=== PATIENT | male | born 1945 | race Caucasian/White ===

== ENCOUNTER → 2018-12-30 10:19 | Outpatient (POV) | payer MEDICARE, OTHER, SELFPAY ==
[2018-12-30 11:15] LABS: Adenovirus F 40/41, stool Not Detected (NotDetected); Astrovirus Not Detected (NotDetected); Campylobacter Not Detected (NotDetected); Clostridium Difficile A/B, PCR Not Detected (NotDetected); Cryptosporidium Not Detected (NotDetected); Cyclospora Cayetanesis Not Detected (NotDetected); Entamoeba histolytica Not Detected (NotDetected); Enteroaggregative E coli Not Detected (NotDetected); Enterotoxigenic E coli Not Detected (NotDetected); Giardia lamblia Not Detected (NotDetected); Norovirus Not Detected (NotDetected); Plesimonas Shigalloides, PCR Not Detected (NotDetected); Rotavirus A Not Detected (NotDetected); Salmonella, PCR Not Detected (NotDetected); Sapovirus Not Detected (NotDetected); Shiga-like toxin E coli Not Detected (NotDetected); Shigella Enterovasive E coli Not Detected (NotDetected); Vibrio Cholerae Not Detected (NotDetected); Vibrio, PCR Not Detected (NotDetected); Yersinia Entercolitica, PCR Not Detected (NotDetected)
[2018-12-30 13:33] LABS: Enteropathogenic E coli Detected (NotDetected)
== END ==
PROVIDERS: PCP Family Medicine; Visit Provider Nurse Practitioner Family
DX: Y99.9 Unspecified external cause status (principal)
CPT/HCPCS: 87506

== ENCOUNTER → 2019-01-06 10:05 | Outpatient (POV) | payer MEDICARE, OTHER, SELFPAY | PROVIDERS: PCP Family Medicine; Visit Provider Nurse Practitioner Family | DX: Z00.00 Encounter for general adult medical examination without abnormal findings (principal) ==

== ENCOUNTER → 2019-04-02 11:00 | Outpatient (CLI) | payer MEDICARE, OTHER, SELFPAY ==
[2019-04-02 12:09] LABS: Basophils # 0.1 K/mm3 (0-0.2); Eosinophils # 0.2 K/mm3 (0.0-0.4); Eosinophils % 3.1 % (0.1-12.0); Hematocrit 47.2 % (42.0-52.0); Hemoglobin 15.2 g/dL (14.1-18.0); Lymphocytes # 2.6 K/mm3 (0.7-4.5); Lymphocytes % 43.8 % (10-50); Mean Corpuscular HGB Conc 32.1 g/dL (31.8-35.4); Mean Corpuscular Hemoglobin 29.8 pg (27.0-31.2); Mean Corpuscular Volume 92.7 fl (80-94); Mean Platelet Volume 10.7 fl (7.4-10.4); Monocytes # 0.2 K/mm3 (0.1-1.0); Monocytes % 3.6 % (1.7-9.3); Neutrophils # 2.9 K/mm3 (1.8-7.8); Neutrophils % 48.5 % (37.0-80.0); Platelet Count 167 K/mm3 (142-424); Red Blood Count 5.09 M/mm3 (4.60-6.20); Red Cell Distribution Width 13.4 % (11.5-17.5)
[2019-04-02 12:22] LABS: INR 1.01 (0.9-1.1); Prothrombin Time 10.5 seconds (9.4-11.8)
[2019-04-02 14:16] LABS: Alanine Aminotransferase 54 U/L (12-78); Albumin Level 3.9 gm/dL (3.4-5.0); Albumin/Globulin Ratio 1.2 (1.1-1.8); Alkaline Phosphatase 53 U/L (46-116); Anion Gap 12.5 mEq/L (5-15); Aspartate Amino Transferase 36 U/L (15-37); Bilirubin,Total 0.5 mg/dL (0.2-1.0); Blood Urea Nitrogen 14 mg/dL (7-18); Calcium 9.4 mg/dL (8.5-10.1); Carbon Dioxide 30 mmol/L (21.0-32.0); Chloride 102 mmol/L (98-107); Creatinine,Serum 1.19 mg/dL (0.70-1.30); Estimated Glomerular Filt Rate 60 ml/min (>60); Ferritin 208 ng/mL (8-388); GFR (African American) 73 ML/MIN (>60); Globulin 3.2 gm/dl (1.3-3.2); Glucose 182 mg/dL (74-106); Potassium 4.5 mmoL/L (3.5-5.1); Sodium 140 mmol/L (136-145); Total Protein,Serum 7.1 gm/dL (6.4-8.2)
[2019-04-03 08:14] LABS: Hep A Ab, IgM Negative (Negative); Hepatitis B Core Antibody IgM Negative (Negative); Hepatitis B Surface Antigen Negative (Negative); Immunoglobulin A, Qn 97 mg/dL (61-437); Immunoglobulin G, Qn 1024 mg/dL (700-1600); Iron 82 ug/dL (38-169); Iron Saturation 26 % (15-55); UIBC 228 ug/dL (111-343)
[2019-04-03 12:04] LABS: Hepatitis C Antibody <0.1 s/co ratio (0.0-0.9); Immunoglobulin M, Qn 59 mg/dL (15-143)
[2019-04-03 13:25] LABS: Angiotensin Converting Enzyme <15 U/L (14-82)
[2019-04-04 08:27] LABS: Actin (Smooth Muscle) Antibody 7 Units (0-19)
[2019-04-08 19:10] LABS: Alpha-1-Antitrypsin 88 mg/dL (101-187); Phenotype (PI) MZ (.)
== END ==
PROVIDERS: Visit Provider Family Medicine
DX: K76.0 Fatty (change of) liver, not elsewhere classified (principal); R11.0 Nausea
CPT/HCPCS: 80053; 80074; 82103; 82104; 82164; 82728; 82784; 83540; 83550; 85025; 85610; 86038; 86255

== ENCOUNTER → 2019-05-12 12:55 | Outpatient (POV) | payer MEDICARE, OTHER, SELFPAY | PROVIDERS: Visit Provider Nurse Practitioner Family | DX: Z00.00 Encounter for general adult medical examination without abnormal findings (principal) ==

== ENCOUNTER → 2019-11-18 08:33 | Outpatient (CLI) | payer MEDICARE, SELFPAY ==
--- NOTE | 2019-11-18 09:24 | US_ITS ---
PROCEDURE: US ABDOMEN LIMITED CLINICAL INDICATION: ALTERED BOWEL FUNCTION,FATTY LIVER,CIRRHOSIS,ALPHA 1 ANTITRY COMPARISON: No exams were available for comparison FINDINGS: PANCREAS: Unremarkable. No obvious mass or abnormal fluid collection. No ductal dilatation LIVER: No focal liver lesions demonstrated. Increased echogenicity. No intrahepatic biliary ductal dilatation evident. There is appropriate direction of blood flow within a non dilated portal vein. The liver measures 16.8 centimeters RIGHT KIDNEY: Unremarkable. Normal size and echogenicity. No hydronephrosis, the right kidney measures 10.8 centimeters GALLBLADDER: Status post cholecystectomy IMPRESSION: Status post cholecystectomy, hepatic steatosis Dictated by: Mio Vo 11/18/2019 10:15 Electronically signed by Mio Vo in [facility] 11/18/2019 10:15
[2019-11-18 09:37] LABS: Basophils # 0.1 K/mm3 (0-0.2); Basophils % 0.9 % (0.1-2.0); Eosinophils # 0.2 K/mm3 (0.0-0.4); Eosinophils % 2.7 % (0.1-12.0); Hematocrit 47.2 % (42.0-52.0); Hemoglobin 15.7 g/dL (14.1-18.0); Lymphocytes # 3.1 K/mm3 (0.7-4.5); Lymphocytes % 43.7 % (10-50); Mean Corpuscular HGB Conc 33.3 g/dL (31.8-35.4); Mean Corpuscular Hemoglobin 29.4 pg (27.0-31.2); Mean Corpuscular Volume 88.2 fl (80-94); Monocytes # 0.2 K/mm3 (0.1-1.0); Monocytes % 3.4 % (1.7-9.3); Neutrophils # 3.4 K/mm3 (1.8-7.8); Neutrophils % 49.2 % (37.0-80.0); Platelet Count 153 K/mm3 (142-424); Red Blood Count 5.35 M/mm3 (4.60-6.20); Red Cell Distribution Width 13.6 % (11.5-17.5)
[2019-11-18 09:48] LABS: Ammonia < 9 umol/L (9-30)
[2019-11-18 10:12] LABS: INR 1.12 (0.9-1.1); Prothrombin Time 11.4 seconds (9.4-11.8)
[2019-11-18 10:59] LABS: Alanine Aminotransferase 49 U/L (12-78); Albumin Level 4.8 g/dl (3.5-5.0); Albumin/Globulin Ratio 1.7 (1.1-1.8); Alkaline Phosphatase 54 U/L (38-126); Anion Gap 12.3 mEq/L (5-15); Aspartate Amino Transferase 45 U/L (17-59); Bilirubin,Total 0.5 mg/dl (0.2-1.3); Blood Urea Nitrogen 15 mg/dl (9-20); Calcium 10.2 mg/dl (8.4-10.2); Carbon Dioxide 31 mmol/L (22.0-30.0); Chloride 97 mmol/L (98-107); Estimated Glomerular Filt Rate 73 ml/min (>60); GFR (African American) 89 ML/MIN (>60); Globulin 2.8 g/dL (1.3-3.2); Glucose 168 mg/dl (74-100); Iron 66 ug/dL (49-181); Potassium 5.3 mmoL/L (3.5-5.1); Sodium 135 mmol/L (136-145); Total Protein,Serum 7.6 g/dl (6.3-8.2)
[2019-11-18 11:12] LABS: Total Iron Binding Capacity 370 ug/dL (261-462)
[2019-11-18 11:50] LABS: Ferritin 71.3 ng/ml (17.9-464)
[2019-11-19 11:01] LABS: AFP, Tumor Marker 5.7 ng/mL (0.0-8.3)
== END ==
PROVIDERS: PCP Family Medicine; Visit Provider Nurse Practitioner Family
DX: R19.4 Change in bowel habit (principal); K76.0 Fatty (change of) liver, not elsewhere classified; K74.60 Unspecified cirrhosis of liver; K52.89 Other specified noninfective gastroenteritis and colitis; E88.01 Alpha-1-antitrypsin deficiency
CPT/HCPCS: 36415; 76705; 80053; 82105; 82140; 82728; 83540; 83550; 85025; 85610

== ENCOUNTER → 2019-11-24 14:31 | Outpatient (POV) | payer MEDICARE, SELFPAY | PROVIDERS: Visit Provider Nurse Practitioner Family | DX: Z00.00 Encounter for general adult medical examination without abnormal findings (principal) ==

== ENCOUNTER → 2020-05-10 07:39 | Outpatient (CLI) | payer MEDICARE, SELFPAY ==
--- NOTE | 2020-05-10 07:42 | US_ITS ---
PROCEDURE: US ABDOMEN LIMITED CLINICAL INDICATION: ALTERED BOWEL FUNCTION, FATTY LIVER, CIRRHOSIS COMPARISON: US US ABDOMEN LIMITED from 11/18/2019 FINDINGS: PANCREAS: Pancreas is not well delineated due to overlying bowel gas. CT or MRI without and with contrast with pancreatic protocol may provide further evaluation if clinically desired. LIVER: Diffuse increased echogenicity of the liver with poor through transmission of sound consistent with hepatic steatosis. No focal liver lesion demonstrated. Unable to obtain hepatic Doppler Right kidney: Unremarkable GALLBLADDER: Prior cholecystectomy. Common bile duct is normal 4 mm. IMPRESSION: Fatty liver. No focal liver lesion. Unable to obtain hepatic Doppler. Poor visualization the pancreas Dictated by: Danial Hylton MD 05/10/2020 17:55 Danial Hylton MD in [facility] 05/10/2020 17:55
== END ==
PROVIDERS: PCP Family Medicine; Visit Provider Nurse Practitioner Family
DX: K74.60 Unspecified cirrhosis of liver (principal); K76.0 Fatty (change of) liver, not elsewhere classified; E88.01 Alpha-1-antitrypsin deficiency
CPT/HCPCS: 76705

== ENCOUNTER → 2020-05-17 13:23 | Outpatient (POV) | payer MEDICARE, SELFPAY ==
[2020-05-17 15:07] LABS: Basophils # 0.1 K/mm3 (0-0.2); Basophils % 0.7 % (0.1-2.0); Eosinophils # 0.1 K/mm3 (0.0-0.4); Eosinophils % 1.6 % (0.1-12.0); Hematocrit 46.5 % (42.0-52.0); Hemoglobin 15.6 g/dL (14.1-18.0); Lymphocytes # 3.1 K/mm3 (0.7-4.5); Lymphocytes % 39.5 % (10-50); Mean Corpuscular HGB Conc 33.5 g/dL (31.8-35.4); Mean Corpuscular Hemoglobin 29.8 pg (27.0-31.2); Mean Platelet Volume 10.9 fl (7.4-10.4); Monocytes # 0.3 K/mm3 (0.1-1.0); Monocytes % 3.9 % (1.7-9.3); Neutrophils # 4.3 K/mm3 (1.8-7.8); Neutrophils % 54.3 % (37.0-80.0); Platelet Count 154 K/mm3 (142-424); Red Blood Count 5.23 M/mm3 (4.60-6.20); White Blood Count 7.9 K/mm3 (4.8-10.8)
[2020-05-17 15:12] LABS: Ammonia < 9 umol/L (9-30)
[2020-05-17 15:29] LABS: INR 1.08 (0.9-1.1); Prothrombin Time 11.9 seconds (9.4-11.8)
[2020-05-17 15:31] LABS: Alanine Aminotransferase 57 U/L (12-78); Albumin Level 4.6 g/dl (3.5-5.0); Albumin/Globulin Ratio 1.5 (1.1-1.8); Alkaline Phosphatase 57 U/L (38-126); Anion Gap 12.4 mEq/L (5-15); Aspartate Amino Transferase 55 U/L (17-59); Bilirubin,Total 0.4 mg/dl (0.2-1.3); Blood Urea Nitrogen 12 mg/dl (9-20); Calcium 9.6 mg/dl (8.4-10.2); Carbon Dioxide 28 mmol/L (22.0-30.0); Chloride 101 mmol/L (98-107); Estimated Glomerular Filt Rate 83 ml/min (>60); GFR (African American) 100 ML/MIN (>60); Glucose 181 mg/dl (74-100); Potassium 4.4 mmoL/L (3.5-5.1); Sodium 137 mmol/L (136-145); Total Protein,Serum 7.6 g/dl (6.3-8.2)
[2020-05-17 15:40] LABS: Total Iron Binding Capacity 346 ug/dL (261-462)
[2020-05-17 16:07] LABS: Ferritin 126 ng/ml (17.9-464)
[2020-05-17 16:28] LABS: Iron 62 ug/dL (49-181)
[2020-05-19 12:03] LABS: AFP, Tumor Marker 3.2 ng/mL (0.0-8.3)
== END ==
PROVIDERS: Visit Provider Nurse Practitioner Family
DX: R10.84 Generalized abdominal pain (principal); K74.60 Unspecified cirrhosis of liver; E88.01 Alpha-1-antitrypsin deficiency; K76.0 Fatty (change of) liver, not elsewhere classified; K52.89 Other specified noninfective gastroenteritis and colitis
CPT/HCPCS: 36415; 80053; 82105; 82140; 82728; 83540; 83550; 85025; 85610

== ENCOUNTER 2022-04-04 06:45 | Day surgery (SDC) | payer MEDICARE, SELFPAY ==
[2022-03-30 12:59] VITALS: BMI 38.2
[2022-04-04] VITALS (7 sets, daily range): BP systolic 144–167; BP diastolic 76–94; PULSE 67–78; RESP 16–20; TEMP 36.3–36.8; O2SAT 92–99
[2022-04-04 07:26] LABS: POC Glucose,Bedside 90 (70-110)
== END 2022-04-04 08:35 | disposition home or self-care (01) ==
LOC: OR 06:50
PROVIDERS: PCP Family Medicine; Visit Provider Ophthalmology
DX: E11.36 Type 2 diabetes mellitus with diabetic cataract
CPT/HCPCS: 66984; 82962; V2632

== ENCOUNTER 2022-04-18 06:46 | Day surgery (SDC) | payer MEDICARE, SELFPAY ==
[2022-04-13 13:31] VITALS: BMI 36.9
[2022-04-18] VITALS (7 sets, daily range): BP systolic 135–165; BP diastolic 81–92; PULSE 68–80; RESP 16–20; TEMP 36.4–36.8; O2SAT 95–99
[2022-04-18 07:56] LABS: POC Glucose,Bedside 108 (70-110)
== END 2022-04-18 09:15 | disposition home or self-care (01) ==
PROVIDERS: PCP Family Medicine; Visit Provider Ophthalmology
DX: E11.36 Type 2 diabetes mellitus with diabetic cataract (principal); Z79.899 Other long term (current) drug therapy; Z79.4 Long term (current) use of insulin
CPT/HCPCS: 66984; 82962; V2632